=== PATIENT | female | born 1995 | race Caucasian/White ===

== ENCOUNTER 2019-05-02 12:50 | Inpatient (IN) | payer OTHER, BC ==
[~2019-05-02] VITALS: Ht 147.3 cm; Wt 38.6 kg
[2019-05-02 12:54] VITALS: BP 111/74
[2019-05-02 13:44] LABS: ABSOLUTE NEUTROPHILS 12.4 thou/uL (1.4-8.2); BASOPHILS 0.3 % (0.0-2.0); EOSINOPHILS 0.1 % (0.0-3.0); HEMATOCRIT 41.7 % (37.0-47.0); HEMOGLOBIN 13.9 gm/dL (12.0-15.0); LYMPHOCYTES 6.9 % (24.0-44.0); MCH 31.8 pg (26.0-34.0); MCHC 33.4 g/dL (28.0-37.0); MCV 95.1 fL (80.0-100.0); MONOCYTES 5.8 % (1.0-8.0); POLYS 86.9 % (36.0-66.0); RBC 4.39 mil/uL (4.20-5.00); RDW 12.5 % (10.5-14.5); WBC 14.2 thou/uL (4.0-11.0)
[2019-05-02 13:49] LABS: CALCIUM 9.4 mg/dL (8.5-10.1); CREATININE 0.8 mg/dL (0.6-1.0); POTASSIUM 4.3 mmol/L (3.5-5.1)
[2019-05-02 13:55] LABS: ALBUMIN 3.5 g/dL (3.4-5.0); TOTAL BILIRUBIN 1.8 mg/dL (<0.1-1.0)
[2019-05-02 14:13] LABS: LARGE PLATELETS FEW; PLATELET COUNT 143 thou/uL (150-400)
[2019-05-02 15:09] LABS: URINE BILIRUBIN NEGATIVE (Negative); URINE BLOOD NEGATIVE (Negative); URINE CLARITY CLEAR; URINE COLOR YELLOW; URINE GLUCOSE-RANDOM* NEGATIVE (Negative); URINE KETONES 3+ (Negative); URINE LEUKOCYTES-REFLEX NEGATIVE (Negative); URINE NITRITE-REFLEX NEGATIVE (Negative); URINE PROTEIN (DIPSTICK) 1+ (Negative); URINE UROBILINOGEN 0.2 E.U./dl (0.2-1.0)
[2019-05-02 15:22] LABS: SQUAMOUS >10 Many /LPF (0-3)
[2019-05-02 15:23] LABS: BACTERIA-REFLEX 1-9 Few /HPF (None Seen); CASTS None Seen /LPF (None Seen); CRYSTALS None Seen /LPF (None Seen); URINE RBC 0-2 Rare /HPF (0-2); URINE WBC-REFLEX 0-5 Rare /HPF (0-5)
[2019-05-02 15:41] VITALS: BP 105/68
[2019-05-02 16:34] VITALS: BP 103/70
[2019-05-02 17:00] VITALS: BP 120/79
[2019-05-02 19:56] VITALS: BP 96/60
[2019-05-03 00:36] VITALS: BP 97/54
[2019-05-03 03:39] VITALS: BP 109/67
[2019-05-03 04:47] LABS: CALCIUM 8.8 mg/dL (8.5-10.1); CREATININE 0.8 mg/dL (0.6-1.0); HEMATOCRIT 37.3 % (37.0-47.0); HEMOGLOBIN 12.6 gm/dL (12.0-15.0); MCH 31.9 pg (26.0-34.0); MCHC 33.8 g/dL (28.0-37.0); MCV 94.5 fL (80.0-100.0); POTASSIUM 4.6 mmol/L (3.5-5.1); RBC 3.95 mil/uL (4.20-5.00); RDW 12.4 % (10.5-14.5); WBC 6.2 thou/uL (4.0-11.0)
[2019-05-03 08:00] VITALS: BP 98/63
[2019-05-03] MEDS ORDERED: CLEOCIN HCL150 MG PO (10:27)
[2019-05-03] MEDS ORDERED: ZOFRAN ODT4 MG DISSOLVE (10:27)
[2019-05-03 11:45] VITALS: BP 109/75
[2019-05-03] MEDS ORDERED: AUGMENTIN 875-1 EACH PO (13:24)
[2019-05-03] MEDS ORDERED: PREDNISONE 10 M10 MG PO (13:24)
[2019-05-03] MEDS ORDERED: HYDROCODONE-ACE15 ML PO (13:25)
[2019-05-03 13:46] VITALS: BP 109/75
== END 2019-05-03 13:55 | disposition home or self-care (01) | DRG 153 ==
LOC: ER 12:50 → EROBS 15:34 → 2N 15:34
PROVIDERS: Physician Assistant; ADMIT Hospitalist
DX: J02.0 Streptococcal pharyngitis (principal); M41.9 Scoliosis, unspecified; Z98.1 Arthrodesis status; Z85.528 Personal history of other malignant neoplasm of kidney; Z90.5 Acquired absence of kidney; Z91.048 Other nonmedicinal substance allergy status
CPT/HCPCS: 10194